=== PATIENT | female | born 1985 | race Caucasian/White ===

== ENCOUNTER 2022-02-10 07:13 | Emergency (ER) | payer MEDICAID ==
[~2022-02-10] VITALS: Ht 162.6 cm; Wt 61.2 kg
[2022-02-10] MEDS ORDERED: Robaxin750 MG PO ×2 (09:39→09:40)
== END 2022-02-10 10:10 | disposition home or self-care (01) ==
LOC: ER 07:13
DX: S02.2XXA Fracture of nasal bones, initial encounter for closed fracture (principal); S80.01XA Contusion of right knee, initial encounter; S50.01XA Contusion of right elbow, initial encounter; V89.2XXA Person injured in unspecified motor-vehicle accident, traffic, initial encounter; Z88.1 Allergy status to other antibiotic agents
CPT/HCPCS: 70450; 71046; 72125; 73080; 73564; 99284-25; A9270